=== PATIENT | male | born 1985 | race Caucasian/White ===

== ENCOUNTER 2016-10-22 12:45 | Emergency (ER) | payer OTHER ==
[~2016-10-22] VITALS: Ht 182.9 cm; Wt 109.1 kg
[~2016-10-22 12:45] MED LIST: MULTI VITAMINS1 TAB PO; NO HOME MEDICATIONS; ZITHROMAX Z PA250 MG PO
[2016-10-22 12:52] VITALS: BP 134/77; PULSE 77; TEMP 97.9
[2016-10-22] MEDS ORDERED: LEXAPRO 10MG10 MG PO (12:53)
[2016-10-22] MEDS ORDERED: XANAX XR0.5 MG PO (12:53)
[2016-10-22] MEDS ORDERED: INDERAL80 MG PO (12:53)
[2016-10-22] MEDS ORDERED: ATIVAN 1MG T1 MG/TAB PO (12:53)
[2016-10-22] MEDS ORDERED: DESYREL 100MG100 MG PO (12:54)
[2016-10-22] MEDS ORDERED: CELEBREX50 MG PO ×2 (12:54→13:32)
[2016-10-22] MEDS ORDERED: ASPIRIN 81M81 MG/TA2 PO (12:54)
[2016-10-22 14:18] LABS: BASO # 0.1 (0.0-0.2); EOS # 0.4 (0.0-0.7); EOS % 4.2 % (0-4.0); GRAN # 6.3 (1.4-6.5); GRAN % 61.5 % (42.2-75.2); HEMATOCRIT 43.6 % (42.0-52.0); HEMOGLOBIN 15.3 g/dl (13.5-18.0); LYMPH # 2.3 (1.2-3.4); LYMPH % 22.9 % (20.0-51.0); MEAN CELL VOLUME 94 fl (80.0-100.0); MEAN CORPUSCULAR HEMOGLOBIN 33 pg (27.0-31.0); MEAN CORPUSCULAR HGB CONC 35 g/dl (33.0-37.0); MONO % 10.1 % (1.7-9.3); PLATELET COUNT 233 K/mm3 (130-400); RED BLOOD COUNT 4.63 M/mm3 (4.20-5.60); REDCELL DISTRIBUTION WIDTH-CV 12.2 % (11.5-14.5); WHITE BLOOD COUNT 10.2 K/mm3 (4.8-10.8)
[2016-10-22 14:35] LABS: ADJUSTED CALCIUM 8.9 mg/dL (8.4-10.2); ALANINE AMINOTRANSFERASE 35 U/L (21-72); ALBUMIN 4.1 gm/dL (3.5-5.0); ALKALINE PHOSPHATASE 59 U/L (50-136); ANION GAP 10 mmol/L (7-16); BILIRUBIN,TOTAL 0.7 mg/dL (0.0-1.0); BLOOD UREA NITROGEN 15 mg/dL (9-20); CARBON DIOXIDE 24 mmol/L (22-30); CHLORIDE 104 mmol/L (98-107); CREATININE, serum 0.99 mg/dL (0.66-1.25); GLUCOSE 101 mg/dL (74-106); LIPASE 106 U/L (23-300); POTASSIUM 4.1 mmol/L (3.4-5.0); SODIUM 138 mmol/L (137-145); TOTAL PROTEIN 7.1 gm/dL (6.4-8.2)
[2016-10-22 14:36] LABS: C-REACTIVE PROTEIN < 0.5 mg/dL (0.0-0.9)
[2016-10-22] MEDS ORDERED: ULTRAM 50MG TAB50 MG PO (15:11)
== END 2016-10-22 15:40 | disposition home or self-care (01) ==
LOC: COL.ER 12:45
PROVIDERS: Family Medicine
DX: K62.5 Hemorrhage of anus and rectum (principal); R10.84 Generalized abdominal pain
CPT/HCPCS: J2270; J7030; Q9967

== ENCOUNTER 2016-11-20 21:28 | Emergency (ER) | payer OTHER ==
[~2016-11-20] VITALS: Ht 182.9 cm; Wt 109.1 kg
[~2016-11-20 21:28] MED LIST changes: +ASPIRIN 81M81 MG/TA2 PO; +ATIVAN 1MG T1 MG/TAB PO; +CELEBREX50 MG PO; +DESYREL 100MG100 MG PO; +INDERAL80 MG PO; +LEXAPRO 10MG10 MG PO; +ULTRAM 50MG TAB50 MG PO; +XANAX XR0.5 MG PO
[2016-11-20 21:31] VITALS: BP 138/89; TEMP 97.4
[2016-11-20 22:32] VITALS: PULSE 70
== END 2016-11-20 22:32 | disposition home or self-care (01) ==
LOC: COL.ER 21:28
DX: S61.012A Laceration without foreign body of left thumb without damage to nail, initial encounter (principal); W25.XXXA Contact with sharp glass, initial encounter; Y92.009 Unspecified place in unspecified non-institutional (private) residence as the place of occurrence of the external cause

== ENCOUNTER 2016-11-26 15:14 | Emergency (ER) | payer OTHER ==
[2016-11-26 15:16] VITALS: BP 155/77; PULSE 72; TEMP 98.3
== END 2016-11-26 15:19 | disposition home or self-care (01) ==
LOC: COL.ER 15:14
DX: Z48.02 Encounter for removal of sutures (principal)